=== PATIENT | male | born 1985 | race Caucasian/White ===

== ENCOUNTER → 2018-05-14 | Outpatient (CLI) | payer OTHER | LOC: BRMIMAGING 10:00 | PROVIDERS: ATTEND Internal Medicine | DX: S80.11XA Contusion of right lower leg, initial encounter (principal); S70.12XA Contusion of left thigh, initial encounter; W23.0XXA Caught, crushed, jammed, or pinched between moving objects, initial encounter; Y93.H3 Activity, building and construction; Y99.0 Civilian activity done for income or pay | CPT/HCPCS: 73521-PO; 73551-PO; 73564-PO ==